=== PATIENT | female | born 2000 | race African-American/Black ===

== ENCOUNTER 2021-07-07 07:56 | Emergency (ER) | payer MEDICAID, SELFPAY ==
[2021-07-07 08:07] VITALS: BP 138/83; PULSE 91; RESP 18; TEMP 36.6; O2SAT 97; BMI 34.0
--- NOTE | 2021-07-07 08:33 | ED_ITS ---
HPI - URI/Sore Throat General Chief Complaint: Upper Respiratory Symptoms Stated Complaint: Flu symptom Time Seen by Provider: 07/07/21 08:33 Source: patient Mode of arrival: ambulatory Limitations: no limitations History of Present Illness HPI Narrative: 21-year-old otherwise healthy female presents to the ER with 1 day of chest discomfort, chills, headache, body aches and dry cough. She started feeling unwell last night after being around her boyfriend who was just diagnosed with influenza a yesterday. She denies any fevers but has had intermittent chills. She has a dry cough and discomfort in her chest when she coughs and take a deep breath. She denies any chest pain or shortness of breath. She reports an episode of vomiting earlier today and 1 bout of loose stool as well. She denies any abdominal pain. MD elicited complaint: cough, nasal congestion and other (body aches) Onset (ago): day(s) Consistency: progressively worsening Severity: moderate Description of mucous: clear Able to tolerate fluids by mouth: Yes Exacerbating factors: nothing Relieving factors: nothing Context: sick contacts Associated symptoms: chills, myalgias, headache, nasal congestion, cough, nausea and diarrhea Treatments prior to arrival: none Related Data Previous Rx's Medication Instructions Recorded oseltamivir 75 mg capsule (Tamiflu) 75 mg PO BID 5 Days #10 cap 07/07/21 Allergies Allergy/AdvReac Type Severity Reaction Status Date / Time No Known Allergies Allergy Verified 07/07/21 08:07 [No Known Allergies*] Review of Systems Review of Systems: Constitutional: No Fever, + Chills ENT/Mouth: No sore throat, No Rhinorrhea, No Swallowing Difficulty Eyes: No Eye Pain, No Swelling, No Redness Cardiovascular: No Chest Pain, No SOB Respiratory: + Cough, No Sputum, No Wheezing, No dyspnea Gastrointestinal: + Nausea, +Vomiting, + Diarrhea, No abdominal Pain Musculoskeletal: No joint pain, + Myalgias Skin: No Skin Lesions, No rash Neuro: No Weakness, No Numbness, No Dizziness, + Headache Heme/Lymph: No Bruising, No Lymphadenopathy PMFSH Past Medical History Medical History (Updated 07/07/21 @ 08:43 by SHARRON Perez) Hypertension Pre-eclampsia Social History Social History Advance Directives: No Advance Directives Information Provided: No Patient : No Physical Exam Vital Signs: Vital Signs: Last Vital Signs Temp 97.8 F 07/07/21 08:07 Pulse 91 07/07/21 08:07 Resp 18 07/07/21 08:07 BP 138/83 07/07/21 08:07 Pulse Ox 97 07/07/21 08:07 BMI result Body Mass Index 34.0 Appearance: Alert. Oriented X3. No acute distress. Eyes: Pupils equal, round and reactive to light. ENT: Pharynx normal. Normal tonsils. Neck: Normal inspection. Neck supple. CVS: Normal heart rate and rhythm. Pulses normal. Respiratory: No respiratory distress. Breath sounds normal. Skin: Skin warm and dry. Normal skin color. Normal skin turgor. No rashes. Extremities: Normal inspection x4 Neuro: Oriented X 3 Grossly normal nonfocal Course Course Course Narrative: 21-year-old healthy female presenting to the ER with flu-like symptoms that started yesterday. She reports chest discomfort, body aches, headache, dry coug h and chills. Her boyfriend was here yesterday and was diagnosed influenza a with similar symptoms. On arrival to the ER her vital signs are stable and her exam is benign. She denies actual chest pain and states she has has chest wall discomfort when taking deep breaths. She has no PE risk factors and is PERC negative. Pain is most likely due to costochondritis and influenza A. At this time she is stable for discharge home, she qualifies for treatment with Tamiflu. Patient was counseled on treatment and return precautions. Stable for discharge home. MDM - URI/Sore Throat Lab Data Labs: Lab Results 07/07/21 07/07/21 Range/Units 08:15 08:15 COVID-19 (BEV) Negative (Negative) COVID-19 Clin Com See Note Influenza Type A (IVY) Positive A (Negative) Influenza Type B (IVY) Negative (Negative) Influenza A & B Note See Note Critical Care Time Critical Care Time Critical Care Time: No Discharge Plan Discharge Clinical Impression: Influenza Patient Disposition: Home, Self-Care Instructions: Influenza (DC) Additional Instructions: You tested positive for influenza A. Take the prescribed antiviral medication to help shorten the duration of the illness. Treatment is supportive care, rest, drink plenty of fluids, [id number] cold and flu medication, Motrin and Tylenol as needed for body aches and fevers. Follow-up with your doctor as needed. If you develop new or worsening symptoms call 911 or come back to the ER for further evaluation. Prescriptions: New oseltamivir [Tamiflu] 75 mg capsule 75 mg PO BID 5 Days Qty: 10 0RF Stand Alone Forms: Work/School Release Interventions: ED Discharge Assessment Last Done: 07/07/21 08:50 Discharge Date/Time: 07/07/21 08:51
[2021-07-07 08:39] LABS: COVID-19 Test Negative (Negative)
[2021-07-07 08:40] LABS: IDNOW Serial# 16C4AD1C; Influenza A Positive (Negative); Influenza B2 Negative (Negative)
== END 2021-07-07 08:51 | disposition home or self-care (01) ==
PROVIDERS: Emergency Provider Emergency Medicine
DX: J11.1 Influenza due to unidentified influenza virus with other respiratory manifestations (principal); R05.9 Cough, unspecified; M79.10 Myalgia, unspecified site; Z20.822 Contact with and (suspected) exposure to COVID-19; Z79.899 Other long term (current) drug therapy
CPT/HCPCS: 87502; 87635; 99283

== ENCOUNTER 2023-01-29 18:19 | Emergency (ER) | payer MEDICAID, SELFPAY ==
--- NOTE | ~2023-01-29 | US_ITS ---
EXAMINATION: US OBSTETRICAL ULTRASOUND CLINICAL INFORMATION: Positive hCG, unknown LMP, evaluate . COMPARISON: None available. TECHNIQUE: Ultrasound of the maternal pelvis is performed using transabdominal and transvaginal transducers. Transvaginal imaging is performed due to inadequate visualization transabdominally. M-mode Doppler is also performed. FINDINGS: There is a single intrauterine gestational sac with visible yolk sac, embryo/fetus, and cardiac activity. There is no significant subchorionic hemorrhage or hematoma. HR: 133 beats per minute. CRL (crown rump length): 0.42 cm (6 weeks and 1 day +/- 4 days). KELLY (estimated date of delivery): 09/23/2023 +/- 4 days. MATERNAL ADNEXA: Ovaries are normal in morphology. The right ovary measures 2.1 x 2.7 x 2 cm. The left ovary measures 3.4 x 1.7 x 1.7 cm. There is a 1.6 x 1.4 x 1.3 cm corpus luteal cyst in the left ovary. There is no significant maternal adnexal mass. No maternal pelvic ascites. US/US OB pelvic and transvaginal IMPRESSION: 1. Single intrauterine gestation with ultrasound gestational age of 6 weeks and 1 day +/- 4 days. 2. Estimated date of delivery is 09/23/2023 +/- 4 days. 3. No maternal adnexal mass or pelvic ascites.
[2023-01-29 18:24] VITALS: BP 158/100; PULSE 78; O2SAT 97
[2023-01-29 18:51] VITALS: BP 133/76; PULSE 88; RESP 16; TEMP 36.8; O2SAT 98; BMI 31.1
--- NOTE | 2023-01-29 18:52 | ED_ITS ---
HPI - General Adult General Chief complaint: Upper Respiratory Symptoms Stated complaint: N/V X1DAY, SORE THROAT, HEADACHE,BODY ACHES Time Seen by Provider: 01/29/23 19:35 Source: patient Mode of arrival: ambulatory Limitations: no limitations History of Present Illness HPI narrative: 22-year-old female who presents emergency department for evaluation of nausea, vomiting, sore throat, myalgias, arthralgias and fatigue x1 day. Patient states that throughout the day today she has felt hot and cold but did not take her temperature. She complains of diffuse myalgias, patient has had constant nausea with 3 episodes of vomiting. She has had no food or fluid intake today. She states she is feeling lightheaded and dizzy. Patient is also complaining of sore throat. Patient cannot recall the date of her last menstrual period, she is not certain if she is . Related Data Previous Rx's Medication Instructions Recorded oseltamivir 75 mg capsule (Tamiflu) 75 mg PO BID 5 days #10 caps 07/07/21 acetaminophen 500 mg tablet 1,000 mg (2 x 500 mg) PO Q6H PRN 01/29/23 (Tylenol Extra Strength) fever or pain #20 tabs ondansetron 4 mg disintegrating 4 mg PO Q6-8H PRN nausea and 01/29/23 tablet vomiting #14 tabs Allergies Allergy/AdvReac Type Severity Reaction Status Date / Time No Known Allergies Allergy Verified 07/07/21 08:07 [No Known Allergies*] Review of Systems 2 Review of Systems: Yes all other systems are reviewed and are negative [facility] Past Medical History [facility] Narrative: Past medical history: Hypertension with . Surgical history: C- section 2020. Social history: She denies tobacco and alcohol use. She does smoke marijuana daily. Medical History (Updated 01/29/23 @ 22:46 by Austin Ma MD) Hypertension Pre-eclampsia Social History Social History Advance Directives: No Advance Directives Information Provided: No Physical Exam ED Vital Signs: Vital Signs - 24 hr 01/29/23 18:51 Temperature 98.2 F Pulse Rate 88 Respiratory Rate 16 Blood Pressure 133/76 Pulse Oximetry 98 Oxygen Delivery Method Room Air BMI result Body Mass Index 31.1 Vital signs were normal: Exam General: Awake, alert in no distress, elevated BMI 31.1 Head: Normocephalic, atraumatic EENT: PERRL, Lids normal, sclera normal, conjunctiva normal, nose normal , ears normal, throat without erythema or exudates Neck: Supple, no adenopathy, no trachea midline or C-spine tenderness Lung: breath sounds symmetric, no wheezing, rales or rhonchi Chest: symmetric movement, nontender Heart: regular rate and rhythm, normal S1, S2 no murmurs or rubs Abdomen: soft, mild diffuse tenderness, nondistended, normal bowel sounds Back: no vertebral tenderness, no CVAT Extremities: no deformities, moves all extremities symmetrically Skin: no rashes, no lesion, normal color and warmth Neuro: Awake, alert, oriented, normal speech, moves all extremities symmetrically Psych: Pleasant, cooperative Course Course Course Narrative: This is an RME: Additional HPI, ROS, PE not included below will be deferred to primary provider. patient is a 22-year-old female who presents emergency department for evaluation of nausea, vomiting, headache, sore throat, body aches, fatigue. denies known sick contacts, CP, symptoms, LMP unknown, reports possibility of . Plan: labs, U/A, viral testing, zofran Medications Administered Discontinued Medications Generic Name Dose Route Start Last Admin Trade Name Freq PRN Reason Stop Dose Admin Sodium Chloride 1,000 mls @ 999 mls/hr 01/29/23 20:03 01/29/23 21:53 Ns IV 01/29/23 21:03 Infused .Q1H1M STA Infusion Ketorolac Tromethamine 15 mg 01/29/23 20:03 01/29/23 20:25 Ketorolac Tromethamine 15 Mg/Ml Vial IVPUSH 01/29/23 20:04 15 mg ONCE STA Administration Ondansetron HCl 4 mg 01/29/23 18:56 01/29/23 19:34 Ondansetron Odt 4 Mg Tab.Rapdis TRANSLINGU 01/29/23 18:57 4 mg ONCE ONE Administration Ondansetron HCl 4 mg 01/29/23 20:03 01/29/23 20:25 Ondansetron Hcl 4 Mg/2 Ml Vial IVPUSH 01/29/23 20:04 4 mg ONCE ONE Administration Medical Decision Making Medical Decision Making MDM Narrative: 22-year-old female who presents to emergency department for evaluation of 1 day of viral-like syndromes including subjective fever, chills, myalgias, nausea, vomiting, abdominal pain, poor oral intake. Vital signs were normal. Exam did reveal diffuse abdominal tenderness. Following evaluation was ordered: CBC, CMP, lipase, urine test, quantitative beta-hCG, COVID-19, strep, influenza. Patient was treated with Toradol 15 mg IV, Zofran 4 mg IV and normal saline x1 L 11:44 Laboratory evaluation revealed a normal CBC, CMP, COVID-19, influenza and strep were negative Patient's quantitative beta-hCG was 13,967 I ordered a ultrasound to rule out ectopic and to determine the age of the since the patient does not know the date of her last menstrual period. 22:38 Patient's OB ultrasound revealed 1 intrauterine dated at 6 weeks and 1 day with an KELLY of 09/23/2023 I did discuss these findings with the patient. I believe that the is incidental and that her presentation is more consistent with acute viral syndrome. Patient was prescribed Tylenol and Zofran 4 mg ODT every 6 hours as needed for nausea and vomiting. Patient states that she is going to buy [id number] vitamins and the gummy form. She was given printed and verbal instructions and was referred to our OBGYN service. Differential Diagnosis Differential Diagnoses: The differential diagnosis associated with the presentation includes Differential diagnosis includes was not limited to viral syndrome, COVID-19, influenza, strep throat, electrolyte abnormality, anemia, dehydration, Admission/Observation Consideration of admission/observation: Escalation of care including admission/observation considered Lab Data MDM Lab Attestation statement: I reviewed the patient's lab results. See MDM above 01/29/23 19:17 01/29/23 19:17 Labs: Lab Results 01/29/23 Range/Units 19:17 WBC 9.2 (4.8-10.8) X10*3/uL RBC 4.13 L (4.20-5.50) X10*6/uL Hgb 12.5 (12.0-16.0) g/dl Hct 37.2 (37.0-47.0) % MCV 90.1 (80.0-98.0) fL MCH 30.3 (27.0-33.0) pg MCHC 33.6 (31.0-35.0) g/dl RDW 13.2 (11.0-16.0) % Plt Count 226 (160-400) X10*3/uL MPV 10.5 (9.4-12.3) fL Immature Gran % (Auto) 0.4 (0.0-0.4) % Neut % (Auto) 81.6 H (45-73) % Lymph % (Auto) 8.1 L (20-40) % Gillespie % (Auto) 8.8 (2-11) % Eos % (Auto) 0.7 (0-4) % Baso % (Auto) 0.4 (0-2) % Lymph # (Auto) 0.7 L (1.2-4.9) X10*3/uL Gillespie # (Auto) 0.8 (0.1-1.2) X10*3/uL Eos # (Auto) 0.1 (0.0-0.4) X10*3/uL Baso # (Auto) 0.0 (0.0-0.2) X10*3/uL Abs Immat Gran (auto) 0.04 H (0.00-0.03) X10*3/uL Absolute Neuts (auto) 7.5 (2.0-8.3) x10*3/uL Absolute Nucleated RBC 0.000 (0.0-0.012) X10*3/uL Nucleated RBC % (auto) 0.0 (0.0-0.2) /100WBC Sodium 136 (135-145) mmol/L Potassium 3.9 (3.3-5.1) mmol/L Chloride 105 (96-108) mmol/L Carbon Dioxide 23 (22-29) mmol/L Anion Gap 12 (12-20) BUN 5 L (9-16) mg/dL Creatinine 0.63 (0.5-1.4) mg/dL Estim Creat Clear Calc 133.5 Estimated GFR > 60 Random Glucose 89 (60-115) mg/dL Calcium 9.4 (8.4-10.2) mg/dL Total Bilirubin 0.7 (0.0-1.0) mg/dL AST 16 (5-31) U/L ALT 13 (0-31) U/L Alkaline Phosphatase 82 (39-117) U/L Total Protein 8.0 (6.5-8.0) g/dL Albumin 4.4 (3.5-5.0) g/dL Lipase 9 (8-78) U/L Beta HCG, Quant 97305 mIU/mL COVID-19 (BEV) Negative (Negative) COVID-19 Clin Com See Note Influenza Type A (IVY) Negative (Negative) Influenza Type B (IVY) Negative (Negative) Influenza A & B Note See Note S. pyogenes GrpA IVY Negative (Negative) Radiology Impression Discussion of test interpretation with radiology: I have reviewed the radiologist's reading. Discharge Plan Discharge Clinical Impression: Viral syndrome Qualifiers: Weeks of gestation: less than 8 weeks Qualified Code(s): Z3A.01 - Less than 8 weeks gestation of Patient Disposition: Still a Patient Instructions: (ED), Viral Syndrome (ED) Additional Instructions: Take Tylenol (acetaminophen) 500 mg pills, 2 pills every 6 hours as needed for pain or fever. Take Zofran ODT 4 mg pills, 1 pill dissolved in your mouth every 8 hours as needed for nausea and vomiting. Buy [id number] gummy vitamins and take them as directed. Follow-up with our OBGYN providers in 1-2 weeks.. Please return to the emergency department if your symptoms get worse or if you develop any symptoms that are concerning to you. Prescriptions: New acetaminophen [Tylenol Extra Strength] 500 mg tablet 1,000 mg PO Q6H PRN (Reason: fever or pain) Qty: 20 0RF ondansetron 4 mg tablet,disintegrating 4 mg PO Q6-8H PRN (Reason: nausea and vomiting) Qty: 14 0RF No Action oseltamivir [Tamiflu] 75 mg capsule 75 mg PO BID 5 Days Qty: 10 0RF Referrals: Georges Metzger MD [Physician] - 2 weeks ( follow-up)
[2023-01-29 19:33] LABS: MANUAL DIFF FLAG NO
[2023-01-29] MEDS: Ondansetron ODT 4 MG TAB.RAPDIS TRANSLINGU (19:34)
[2023-01-29 19:38] LABS: IDNOW Serial# 08D9AD1C; Strep A Nucleic Acid Negative (Negative)
[2023-01-29 19:44] LABS: Basophils Percent Auto 0.4 % (0-2); Eosinophils Absolute Auto 0.1 X10*3/uL (0.0-0.4); Eosinophils Percent Auto 0.7 % (0-4); Hematocrit 37.2 % (37.0-47.0); Hemoglobin 12.5 g/dl (12.0-16.0); Imm Gran Abs Auto 0.04 X10*3/uL (0.00-0.03); Imm Gran Pct Auto 0.4 % (0.0-0.4); Lymphocytes Absolute Auto 0.7 X10*3/uL (1.2-4.9); Lymphocytes Percent Auto 8.1 % (20-40); Mean Corpuscular HGB Conc 33.6 g/dl (31.0-35.0); Mean Corpuscular Hemoglobin 30.3 pg (27.0-33.0); Mean Corpuscular Volume 90.1 fL (80.0-98.0); Mean Platelet Volume 10.5 fL (9.4-12.3); Monocytes Absolute Auto 0.8 X10*3/uL (0.1-1.2); Monocytes Percent Auto 8.8 % (2-11); Neutrophils Absolute Auto 7.5 x10*3/uL (2.0-8.3); Neutrophils Percent Auto 81.6 % (45-73); Platelet Count 226 X10*3/uL (160-400); Red Blood Count 4.13 X10*6/uL (4.20-5.50); Red Cell Distribution Width 13.2 % (11.0-16.0); White Blood Count 9.2 X10*3/uL (4.8-10.8)
[2023-01-29 19:45] LABS: COVID-19 Test Negative (Negative); IDNOW Serial# 9DB6401D; IDNOW Serial# BCCEAD1C; Influenza A Negative (Negative)
[2023-01-29 19:46] LABS: Influenza B2 Negative (Negative)
[2023-01-29 19:54] LABS: Alanine Aminotransferase 13 U/L (0-31); Albumin Level 4.4 g/dL (3.5-5.0); Alkaline Phosphatase 82 U/L (39-117); Anion Gap 12 (12-20); Aspartate Amino Transferase 16 U/L (5-31); Bilirubin Total 0.7 mg/dL (0.0-1.0); Blood Urea Nitrogen 5 mg/dL (9-16); Calcium 9.4 mg/dL (8.4-10.2); Carbon Dioxide 23 mmol/L (22-29); Chloride 105 mmol/L (96-108); Creatinine Clr Calc Pharmacy 133.5; Estimated Glomerular Filt Rate > 60; Glucose Random 89 mg/dL (60-115); Lipase 9 U/L (8-78); Potassium 3.9 mmol/L (3.3-5.1); Sodium 136 mmol/L (135-145)
[2023-01-29] MEDS: 0.9 % Sodium Chloride 1,000 ML 999 ML IV (20:23)
[2023-01-29] MEDS: ondansetron HCL 4 MG/2 ML VIAL IVPUSH (20:25)
[2023-01-29] MEDS: Ketorolac Tromethamine 15 MG/ML VIAL IVPUSH (20:25)
[2023-01-29 20:29] LABS: HCG Quantitative 13967 mIU/mL
--- NOTE | 2023-01-29 20:29 | PC.NURSE ---
20G iv placed in L-AC, IVF infusing per order. pt medicated per MAR
== END 2023-01-29 22:55 | disposition home or self-care (01) ==
PROVIDERS: Nurse Practitioner Family; Emergency Provider Emergency Medicine Emergency Medical Services
DX: O98.511 Other viral diseases complicating pregnancy, first trimester (principal); Z3A.08 8 weeks gestation of pregnancy; M79.10 Myalgia, unspecified site; R51.9 Headache, unspecified; J02.9 Acute pharyngitis, unspecified; Z11.52 Encounter for screening for COVID-19; Z20.822 Contact with and (suspected) exposure to COVID-19; Z79.899 Other long term (current) drug therapy
CPT/HCPCS: 76801; 76817; 80053; 83690; 84702; 85025; 87502; 87635; 87651; 96361; 96374; 96375; 99283; 99284; J1885; J2405

== ENCOUNTER 2024-09-13 15:31 | Outpatient (REF) | payer MEDICAID, SELFPAY ==
--- OUTSIDE RECORDS SUMMARY | 2024-09-09 13:40 | XMS_ITS | Continuity of Care Document ---
Author Organization [facility] ter Address [address] [place] [id number]- Care Team Providers Care Chief Lifestyle Officer Name Role Phone Not on Staff, PCP Primary Care Physician Unavail able Encounter [facility] ACCT R [id number] Date(s): 09/09/24 - 09/09/[address] [address]- Discharge Disposition: A-D/C Home Attending Physician: Lj Chandler MD Admitting Physician: Lj Chandler MD Referring Physician: Not on Staff, Referring MD Encounter Type: Disch ES Allergies, Adverse Reactions, Alerts No Known Medication Allergies Immunizations Given and Recorded Vaccine Date Status Refusal Reason tetanus/diphtheria/pertussis, acel(Tdap) 01/15/21 Given influenza virus vaccine, inactivated 01/15/21 Give n Medications acetaminophen 500 mg oral tablet 2 tablet = 1,000 mg, By Mouth, 4 times a day, PRN as needed for pain, # 100 tablet, 0 Refills, Maintenance, 09/09/24 1:18:00 PM EDT, Tablet, [facility]/pharmacy #[id number], Partial fill upon patient request if the prescription is for a schedule II opioid drug., 157, cm, 09/09/24 11:42:00 EDT, Height, 77.2, kg, 09/09/24 11:42:00 EDT, Dry Weight Start Date: 09/09/24 Status: Ordered Quantity: 100.0 Unit: tablet Repeat number: 1 ethinyl estradiol-norelgestromin 35 mcg-150 mcg/24 hr transdermal film, extended release 1 patch, Topically, Every week, apply a new patch weekly for 3 weeks, remove for 1 week, then repeat cycle, # 3 each, 11 Refills, Maintenance, 05/01/21 12:07:00 PM EST, [facility] #[id number], Partial fill upon patient request if the prescription is for a schedule II opioid drug., 1 patch Topically Every week,Instr:apply a new patch weekly for 3 weeks, remove for 1 week, then repeat cycle, 160, cm, 05/01/21 11:56:00 EST, Height, 83, kg, 03/24/21 22:25:00 EST, Dry Weight Start Date: 05/01/21 Status: Ordered Quantity: 3.0 Unit: each Repeat number: 12 Indications: Encounter for other general counseling and advice on contraception; ibuprofen 600 mg oral tablet 600 mg, 1, tablet, By Mouth, 4 times a day, PRN, # 60 tablet, Refills 0, Tot. Refills 0, Maintenance, Pain , Moderate, 09/09/24 1:17:00 PM EDT, Route to Pharmacy Electronically, [facility]/pharmacy #[id number], Partial fill upon patient request if the prescription is for a schedule II opioid drug., 157, cm, 09/09/24 11:42:00 EDT, Height, 77.2, kg, 09/09/24 11:42:00 EDT, Dry Weight Start Date: 09/09/24 Status: Ordered Quantity: 60.0 Unit: tablet Repeat number: 1 ibuprofen 800 mg oral tablet 800 mg, 1, tablet, By Mouth, Every 8 hours, PRN, (4-6), may give 400mg per patient preference and re-dose with 400mg within 8 hours if needed. Patient should only receive a total of 800mg of Ibuprofen every 8 hours., # 40 tablet, Refills 0, Tot. Refills 0, Maintenance, Pain , Moderate, 03/21/21 7:08:00 AM EST, Route to Pharmacy Electronically, [facility]/pharmacy #[id number], Partial fill upon patient requestif the prescription is for a schedule II opioid drug., 160, cm, 03/21/21 0:07:00 EST, Height, 91, kg, 03/19/21 16:19:00 EST, Dry Weight Start Date: 03/21/21 Status: Ordered Quantity: 40.0 Unit: tablet Repeat number: 1 Problem List Condition Confirmation Course Effective Dates Status Health St atus Informant Anemia Confirmed Active Anxiety Confirmed Active Childhood asthma Confirmed Active COVID-19 virus infection 10/01/2020 Confirmed Active External hemorrhoid Confirmed Active LGSIL on Pap smear of cervix Confirmed Active Marijuana use Confirmed Active Left arm numbness Confirmed Active Obese class I Confirmed Active Social History Social History Type Response Smoking Status Never (less than 100 in lifetime) entered on: 12/03/20 Sex Female Sex Representation Female (finding) Note * Geraldine ROWLAND, Lj Saleh: PERFORM Event Display: Patient Education Leaflets Authored Date: [id number] Back Pain (Acute or Chronic) ?? [id number] Back Pain (Acute or Chronic) Back pain is 1 of the most common health-related problems. The good news is that most people feel better in 1 to 2 weeks, and the rest mostly in 1 to 2 months. Most people can remain active while experiencing back pain People who have pain??describe it differently???not??everyone is the same. ??? The pain can be sharp, stabbing, shooting, aching, cramping or burning. ??? Movement, standing,bending, lifting, sitting, or walking may make pain worse. ??? It can be limited to 1 spot or area,or it can be more generalized. ??? It can spread upwards, to the front, or go down your arms or legs (sciatica). ??? It can cause muscle spasm. Most of the time, mechanical problems with the muscles??or spine cause the pain. Mechanical problems??are usually caused by an injury to the muscles or ligaments. Illness can cause back pain, but it's usually not caused by a serious illness. Mechanical problems include:? Physical activity, such as sports, exercise, work, or normal activity ??? Overexertion, lifting, pushing, pulling incorrectly or too aggressively ??? Sudden twisting, bending, or stretching from an accident, or accidental movement ??? Poor posture ??? Stretching or moving wrong, without noticing pain at the time ??? Poor coordination, lack of regular exercise (check with your healthcare provider about this) ??? Spinal disc disease or arthritis ??? Stress Pain can also be related to , or illness, such as appendicitis, bladder or kidney infections, kidney stones, and pelvic infections. Acute back pain usually gets better in??1 to 2 weeks. Back pain related to disk disease, arthritis in the spinal joints, or narrowing of the spinal canal (spinal stenosis) can become chronic and lastfor months or years. Unless you had a physical injury, such as a car accident or fall, X-rays are usually not needed forthe first assessment of back pain. If pain continues and does not respond to medical treatment, youmay need X-rays and other tests. Home care Try this home care advice: ??? When in bed, try??to find a position of comfort. A firm mattress is best. Try lying flat on your back with pillows under your knees. You can also try lying on your side with your knees bent up toward your chest and a pillow between your knees. ??? At first, don't try to stretch out the sore spots. If there is a strain, it's not like the good soreness you get after exercising without an injury. In this case, stretching may make it worse. ??? Don't sit for long periods, as in a long car ride or during other??travel. This puts more stress on the lower back than standing or walking. ??? During the first 24 to 72 hours after an acute injury or flare up of chronic back pain, apply an ice pack to the painful area for 20 minutes and then remove it for 20 minutes. Do this over a period of 60 to 90 minutes or several times a day. This will reduce swelling and pain. Wrap the ice pack in a thintowel or plastic to protect your skin. ??? You can start with ice, then switch to heat. Heat (hot shower, hot bath, or heating pad) reduces pain and works well for muscle spasms. Heat can be applied to the painful area for 20 minutes then remove it for 20 minutes. Do this over a period of 60 to 90 minutes or several times a day. Don't sleep on a heating pad. It can lead to skin garcia or tissue damage. ??? You can alternate ice and heat therapy. Talk with your healthcare provider about??the best treatment for your back pain. ??? Therapeutic massage can help relax the back muscles without stretching them. ??? Be aware of safe lifting methods. Don't lift anything without stretching first. ??? If your pain is not severe and your provider agrees, maintain your normal activities as tolerated ??? If your symptoms are severe and your provider recommends a period of rest, try to return to normalactivities as soon as it is approved. Medicines Talk to your healthcare provider before using medicine, especially if you have other medical problems or are taking other medicines. ??? You may use edck-qkf-yeszise medicine as directed on the bottle to control pain, unless another pain medicine was prescribed. Talk with your healthcare provider before using these medicines if you have chronic conditions, such as diabetes, liver or kidney disease, stomach ulcers, or digestive bleeding. Also talk with your provider if you take blood thinners. Your pharmacist is an excellent person to ask questions about prescription and zark-vlk-svcorqu drug interactions. ??? Be careful if you are given a prescription medicines, narcotics, or medicine for mu scle spasms. They can cause drowsiness, affect your coordination, reflexes, and judgment. Don't drive or operate heavy machinery. ?? Follow-up care Follow up with your healthcare provider, or as advised.?? If X-rays were taken, you will be told of any new findings that may affect your care. ?? Call 911 Call 911 if any of the following occur: ??? Trouble breathing ??? Confusion ??? Very drowsy or trouble waking up ??? Fainting or loss of consciousness ??? Rapid or very slow heart rate ??? Loss of bowel or bladder control ?? When to get medical advice Call your healthcare provider right away if any of these occur:? Pain gets worse or spreads toyour legs ??? Your bowel or bladder control changes ??? Fever ??? Blood in your urine ??? Weakness or numbness in 1 or both legs ??? Numbness in the groin or genital area ?? Last Reviewed Date: 2024 00:00:00 ?? [id number] [employer]. All rights reserved. This information is not intended as a substitute for professional medical care. Always follow your healthcare professional's instructions. ?? Patient Care team information Care Team Personnel Name: Not on Staff, PCP Position: S Physician (General Medicine) Member Role: PCP Care Team Related Persons Name: TONY TAWNYAANTOINE Name: DEV BROOKS Insurance Providers Guarantor name: Health Plan Information #: 1 Payer: POS on [employer] Payer Identifier: MARY JO Member Number: [id number] Group Number: [id number] [id number] Subscriber Identifier: [id number] Relationship to Subscriber: self Coverage Type: MEDICAID Coverage Verification Date: MARY JO Telecom: MARY JO Address: NA
--- NOTE | ~2024-09-13 | XR_ITS ---
EXAMINATION: XR SACRUM AND COCCYX CLINICAL INFORMATION: LBP when sitting, ro coccigeal fracture COMPARISON: None available. TECHNIQUE: 2 views of the sacrum and 2 views of the coccyx were obtained. FINDINGS: No fracture line, cortical irregularity, or deformity is identified. SI joints are symmetrical without erosions, sclerosis or fusion. XR/XR sacrum coccyx min 2V IMPRESSION: Unremarkable examination. Electronically signed by: Bakari Ordoñez MD 09/13/2024 04:08 PM EDT
--- NOTE | ~2024-09-13 | XR_ITS ---
EXAMINATION: XR LUMBOSACRAL SPINE CLINICAL INFORMATION: LBP w radiculopathy COMPARISON: None available. TECHNIQUE: Three views of the lumbosacral spine. FINDINGS: There are 5 nonrib-bearing lumbar segments. Vertebral body height and alignment is preserved. There is mild narrowing of the L5-S1 disc space. No other abnormalities are evident. XR/XR lumbar spine 2-3V IMPRESSION: Mild L5-S1 degenerative disc disease. Electronically signed by: Bakari Ordoñze MD 09/13/2024 04:09 PM EDT
== END 2024-09-13 15:32 | disposition home or self-care (01) ==
LOC: HO.HHCX 15:31
PROVIDERS: Visit Provider Internal Medicine
DX: M53.3 Sacrococcygeal disorders, not elsewhere classified (principal); S33.5XXA Sprain of ligaments of lumbar spine, initial encounter
CPT/HCPCS: 72100; 72220

== ENCOUNTER → 2024-09-13 15:31 | Outpatient (BNV) | payer MEDICAID, SELFPAY | PROVIDERS: Visit Provider Radiology Diagnostic Radiology | DX: M54.16 Radiculopathy, lumbar region (principal); M54.50 Low back pain, unspecified | CPT/HCPCS: 72100; 72220 ==